=== PATIENT | male | born 1950 | race Caucasian/White ===

== ENCOUNTER → 2017-05-24 | Outpatient (CLI) | payer BC ==
--- NOTE | 2017-05-25 19:18 | Diagnostic Imaging Report ---
Thyroid Scan with Multiple Uptakes Reason for exam: 66 M with low but not suppressed TSH; no thyroid hormone levels available. Radiopharmaceutical: I-123 Kim 0.28 mCi Report: After oral administration of I-123 Kim, the 6-hour thyroid uptake of iodine is 5% (normal 4-14%) and the 24-hour uptake is 16% (normal 10-35%). Images of the thyroid was obtained in the anterior and anterior oblique projections. The thyroid lobes appear symmetric ins size. The thyroid appears normal in size to mildly enlarged. Distribution of tracer activity is homogeneous throughout both lobes and the isthmus. No focal areas of increased or decreased tracer activity are identified within the thyroid lobes or isthmus. The thyroid is in a normal anatomic location. A pyramidal lobe is not seen. There is no aberrant functioning thyroid tissue seen in the area scanned. Impression: Normal 6-hour and 24-hour thyroid uptakes of iodine. Normal thyroid scan No scan evidence of nodular thyroid disease. Signed by: Dr. Ginette Banda M.D. on 05/25/2017 7:15 PM
== END ==
LOC: NM 09:35
PROVIDERS: ATTEND Internal Medicine
DX: E05.90 Thyrotoxicosis, unspecified without thyrotoxic crisis or storm (principal)
CPT/HCPCS: 78014; A9516